=== PATIENT | female | born 2000 | race Two or more races ===

== ENCOUNTER 2024-05-12 11:54 | Emergency (ER) | payer OTHER ==
[~2024-05-12] VITALS: Ht 149.9 cm; Wt 54.4 kg
[2024-05-12] MEDS ORDERED: TIROSINT100 MCG PO (12:48)
[2024-05-12] MEDS ORDERED: ACETAMINOPHEN 500 MG GEL..CAP PO STA (13:14)
[2024-05-12] MEDS ORDERED: ACETAMINOPHEN 500 MG GEL..CAP PO ONE (13:18)
== END 2024-05-12 14:26 | disposition home or self-care (01) ==
LOC: ER 11:55
DX: M54.50 Low back pain, unspecified (principal)